=== PATIENT | male | born 1955 | race Caucasian/White ===

== ENCOUNTER 2019-05-28 07:04 | Day surgery (SDC) | payer MEDICARE, BC ==
[2019-05-28] MEDS ORDERED: PROPOFOL INJ 200 MG/20 ML VIAL IV ONE (07:28)
--- NOTE | 2019-05-28 08:52 | Discharge Summary ---
Discharge Summary (SDC) - Discharge Final Diagnosis: Colon polyps; rare diverticulosis Date of Surgery: 05/28/19 Discharge Date: 05/28/19 Condition: Good Treatment or Instructions: [place] [id number] POST ENDOSCOPY DISCHARGE INSTRUCTIONS 1. Diet: Start clear liquids that a regular diet as tolerated. 2. Resume all preoperative medications. All oral anticoagulants and aspirins can be resumed 24 hours after procedure. 3. If a polypectomy was performed some bleeding per rectum may occur. This should stop within 3 days. If not, please contact the office. 4. If you had a colonoscopy you may experience some bloating and delayed return of normal bowel function for several days, your regular bowel movement pattern should resume within a week. 5. Please contact [facility] at to make an appointment with Dr. Barros for 1 to 3 weeks following procedure. 6. If you have any questions or concerns regarding your care,treatment plan or follow up, please contact our office. 7. Per clinical guidelines we recommend you undergo a repeat colonoscopy in 3-5 years. Referrals: MELVI SALEH MD [Primary Care Provider] - Discharge Diet: As Tolerated Discharge Activity: Activity As Tolerated Home Care Assistance: None Needed Report the Following to Your Physician Immediately: Shortness of Breath, Increase in Pain, Fever over 101 Degrees
--- NOTE | 2019-05-28 08:55 | Operative Report ---
Operative Report DATE OF SURGERY: 05/28/19 PREOPERATIVE DIAGNOSIS: Personal history of tubular adenoma and hyperplastic po lyps POSTOPERATIVE DIAGNOSIS: Same with left colon polyps x2; scattered diverticulosis of sigmoid colon OPERATION: 1. Total colonoscopy to cecum with photodocumentation. 2. Hot snare polypectomy x2 of left colon polyps at 52 and 38 cm from the anal verge SURGEON: DANIELA VILLANUEVA ANESTHESIA: LMAC TISSUE REMOVED OR ALTERED: Colon polyps x2 COMPLICATIONS: None ESTIMATED BLOOD LOSS: Scant INTRAOPERATIVE FINDINGS: See below PROCEDURE: Obtaining informed consent the patient was taken from the preoperative holding area to the main endoscopy suite where monitoring devices were attached to the patient. Plan and surgical timeout were conducted The patient was placed in the left lateral decubitus position with knees to chest. A perianal examination was performed. There was no visible or palpable anorectal pathology. Sphincter tone was felt to be normal. The flexible adult colonoscope was advanced through the anal rectal canal, all the way to the cecum. Visualization of the cecum was achieved by demonstration of the ileocecal valve, the appendiceal orifice and transillumination of the anterior abdominal wall. This was an excellent study on the well-prepped bowel. The colonoscope was withdrawn slowly and methodically checked and the mucosa carefully. There was no evidence of tumor, stricture, bleeding; in the descending colon were 2 small slightly raised less than 4 mm polyps. One at 52 cm the other at 38 cm from the anal verge. Both specimens were removed using hot snare device, specimen was retrieved and sent as specimen a and B respectively to pathology. There was no significant bleeding from the polypectomy sites. There were a few diverticula of the sigmoid colon. The scope was slowly withdrawn through the anal rectal canal. Complete visualization of the rectum was achieved with photodocumentation. The scope was withdrawn to the patient's anus. The patient tolerated the procedure well and was taken to the recovery area in stable condition. Per surveillance guidelines, patient will be an appropriate candidate for follow-up colonoscopy in 3-5 years pending final path result.
[2019-05-28 09:28] VITALS: BP 128/84
== END 2019-05-28 09:25 | disposition home or self-care (01) ==
LOC: END 07:04
PROVIDERS: ATTEND Surgery
DX: Z12.11 Encounter for screening for malignant neoplasm of colon (principal); D12.6 Benign neoplasm of colon, unspecified; K57.30 Diverticulosis of large intestine without perforation or abscess without bleeding; Z86.010 Personal history of colon polyps; Z88.0 Allergy status to penicillin; Z88.1 Allergy status to other antibiotic agents; Z87.891 Personal history of nicotine dependence; Z79.899 Other long term (current) drug therapy; Z79.51 Long term (current) use of inhaled steroids; Z85.038 Personal history of other malignant neoplasm of large intestine; Z85.46 Personal history of malignant neoplasm of prostate; E66.9 Obesity, unspecified; Z68.38 Body mass index [BMI] 38.0-38.9, adult
CPT/HCPCS: 45385; 88305 ×2; 00811; J2704; 811